=== PATIENT | female | born 1945 | race Caucasian/White ===

== ENCOUNTER 2023-01-30 08:00 | Emergency (ER) | payer MEDICARE, OTHER ==
[2023-01-30] MEDS ORDERED: Acetaminophen 500 MG TAB ONE (08:18)
[2023-01-30] MEDS ORDERED: Triamcinolone 40 MG/ML VIAL ONE (09:00)
[2023-01-30] MEDS ORDERED: Lidocaine 1% PF 5 ML VIAL ONE (09:00)
[2023-01-30 17:23] LABS: RBC Count-Automated (BF) 135 /cu.mm; WBC/Nucleated-Auto (BF) 421 /cu.mm
[2023-01-30 18:35] LABS: BF Color Yellow; Body Fluid Source Synovial Fluid; Clarity Hazy (Clear); Tube # EDTA
[2023-01-30 18:38] LABS: BF Segmented Neutrophils 15 %; Cell Count Non Hematic 77 %; Lymphocytes 8 %
== END 2023-01-30 09:44 | disposition home or self-care (01) ==
LOC: MADERS 08:00
DX: M25.562 Pain in left knee (principal); E11.9 Type 2 diabetes mellitus without complications; I10 Essential (primary) hypertension; E78.00 Pure hypercholesterolemia, unspecified; J45.909 Unspecified asthma, uncomplicated; Z79.899 Other long term (current) drug therapy; Z79.85 Long-term (current) use of injectable non-insulin antidiabetic drugs
CPT/HCPCS: 20610; 85060; 87070; 87205; 89051; 89060; 96372; J3301